=== PATIENT | male | born 1945 | race Caucasian/White ===

== ENCOUNTER 2019-02-10 06:35 | Emergency (ER) | payer BC, OTHER ==
[~2019-02-10] VITALS: Ht 185.4 cm; Wt 113.4 kg
[2019-02-10] MEDS ORDERED: TAMS0.4C (07:05)
== END 2019-02-10 13:01 | disposition home or self-care (01) ==
LOC: ER 06:35
DX: M62.81 Muscle weakness (generalized) (principal); R60.0 Localized edema; T50.995A Adverse effect of other drugs, medicaments and biological substances, initial encounter; Y92.89 Other specified places as the place of occurrence of the external cause